=== PATIENT | female | born 1955 | race Hispanic/Latino ===

== ENCOUNTER 2019-02-07 01:57 | Emergency (ER) | payer SELFPAY ==
[2019-02-07] MEDS ORDERED: IBUPROFEN 400 MG TAB ONE (02:47)
[2019-02-07] MEDS ORDERED: MORPHINE 4 MG/ML SYR ONE (02:57)
--- NOTE | 2019-02-07 03:19 | EDPHYS ---
Physician Documentation [facility] Name: Lynda Alonso Age: 63 yrs Sex: Female : 1955 Arrival Date: 02/07/2019 Time: 02:04 Bed 14 Private MD: ED Physician Wilfred Wills HPI: 02/07 02:05 This 63 yrs old Female presents to ER via EMS with complaints of Ankle Injury. jmm 02:05 The patient presents with an injury, pain. Onset: The symptoms/episode began/occurred jmm acutely, 2.5 hour(s) ago. Context: The problem was sustained at home. Associated signs and symptoms: Pertinent positives: swelling, Pertinent negatives:. Modifying factors: The symptoms are alleviated by the symptoms are aggravated by weight bearing, movement. This is a 63 year old female with no known chronic medical conditions that presents to the ED with complaints of right ankle pain which began 2.5 hours ago. Patient states she rolled her ankle and noticed increased swelling. Patient states she decided not to bear weight and called EMS. Patient admits to ETOH intake. Denies any other known injury, . Historical: - Allergies: 01:58 No Known Allergies; jb4 - Home Meds: 01:58 None [Active]; jb4 - PMHx: 01:58 None; jb4 - PSHx: 01:58 None; jb4 - Immunization history:: Adult Immunizations not up to date. - Social history:: Smoking status: Patient uses tobacco products, smokes .3 packs per day, Patient uses alcohol. - Ebola Screening: : No symptoms or risks identified at this time. ROS: 02:05 Constitutional: Negative for fever, chills, and weight loss, Cardiovascular: Negative jmm for chest pain, palpitations, and edema, Respiratory: Negative for shortness of breath, cough, wheezing, and pleuritic chest pain. 02:05 MS/extremity: Positive for injury or acute deformity, pain, swelling. 02:05 All other systems are negative. Exam: 02:05 Constitutional: This is a well developed, well nourished patient who is awake, alert, jmm and in no acute distress. Head/Face: atraumatic. Eyes: EOMI, no conjunctival erythema appreciated ENT: Moist Mucus Membranes Neck: Trachea midline, Supple Chest/axilla: Normal chest wall appearance and motion. Cardiovascular: Regular rate and rhythm. No edema appreciated Respiratory: Normal respirations, no respiratory distress appreciated Abdomen/GI: Non distended, soft Back: Normal ROM Skin: General appearance color normal 02:05 Musculoskeletal/extremity: swelling noted to the right ankle, full dorsalis pulse is appreciated, compartments are soft, NVI. 02:05 Skin: Appearance: Color: normal in color. 02:05 Neuro: Orientation: is normal, Mentation: is normal, Memory: is normal. 02:05 Psych: Behavior/mood is pleasant, cooperative. Vital Signs: 01:58 BP 121 / 81; Pulse 84; Resp 16; Temp 97.8(O); Pulse Ox 97% on R/A; Weight 58.97 kg (R); jb4 Height 4 ft. 11 in. (149.86 cm) (R); Pain 8/10; 03:05 BP 113 / 75; Pulse 86; Resp 16; Pulse Ox 96% on R/A; jb4 03:45 BP 106 / 65; Pulse 75; Resp 16; Pulse Ox 99% on R/A; jb4 01:58 Body Mass Index 26.26 (58.97 kg, 149.86 cm) jb4 Procedures: 03:21 Splinting: Splint applied to right leg using post/stirrup. applied by myself. tech. neisha post reduction film - reveals improved alignment, Examined by me, post splint application: neurovascular intact, 2+ distal pulses palpable, brisk capillary refill noted, Patient tolerated well. MDM: 02:07 Patient medically screened. [facility] 03:16 Data reviewed: vital signs, nurses notes. Counseling: I had a detailed discussion with neisha the patient and/or guardian regarding: the historical points, exam findings, and any diagnostic results supporting the discharge/admit diagnosis, radiology results, the need for outpatient follow up. ED course: Dr. Wills discussed the patient with Dr. Watson whom advised to follow up with him in clinic for reevaluation. Patient and family given compartment syndrome return precautions. Family understood and agrees with the plan of care. . 02/07 02:04 Order name: Ankle Right 3 View XRAY 02/07 02:04 Order name: Foot Right 3 View XRAY 02/07 02:19 Order name: Splint: posterior with stirrup; Complete Time: 03:02 [facility] 02/07 02:57 Order name: Ankle Right 3 View XRAY [facility] 02/07 02:19 Order name: Crutches; Complete Time: 03:41 [facility] Administered Medications: 03:02 Not Given (Other Intervention Used): Ibuprofen 400 mg PO once jb4 03:10 Drug: morphine 4 mg {Note: Rass score 0.} Route: IM; Site: left deltoid; jb4 03:40 Follow up: Response: No adverse reaction; Pain is decreased; RASS: Alert and Calm (0) jb Disposition: 06:56 Co-signature as Attending Physician, Wilfred Wills MD I agree with the assessment and ghanshyam plan of care. Disposition: 02/07/19 03:19 Discharged to Home. Impression: Distal Tibial Fracture, Distal Fibular Fracture. - Condition is Stable. - Discharge Instructions: Ankle Fracture. - Prescriptions for Tylenol- Codeine #3 300-30 mg Oral Tablet - take 1 tablet by ORAL route every 6 hours As needed; 20 tablet. - Medication Reconciliation Form, Thank You Letter, Antibiotic Education, Prescription Opioid Use form. - Follow up: Zan Watson MD; When: 2 - 3 days; Reason: Recheck today's complaints, Continuance of care, Re-evaluation by your physician. Signatures: Dispatcher [employer] Wilfred Mcnair MD MD cha Mickail, Joel, PA PA [facility] Garo Lebron RN RN jb4 Corrections: (The following items were deleted from the chart) 04:00 03:19 02/07/2019 03:19 Discharged to Home. Impression: Distal Tibial Fracture; Distal jb4 Fibular Fracture. Condition is Stable. Forms are Medication Reconciliation Form, Thank You Letter, Antibiotic Education, Prescription Opioid Use. Follow up: Zan Watson; When: 2 - 3 days; Reason: Recheck today's complaints, Continuance of care, Re-evaluation by your physician. [facility]
--- NOTE | 2019-02-07 03:19 | ER ---
Nurse's Notes [facility] Name: Lynda Alonso Age: 63 yrs Sex: Female : 1955 Arrival Date: 02/07/2019 Time: 02:04 Bed 14 Private MD: Diagnosis: Distal Tibial Fracture;Distal Fibular Fracture Presentation: 02/07 01:58 Presenting complaint: EMS states: PT rolled her ankle about 2-3 hours ago. Reports that jb4 it started to hurt about 15 minutes prior to calling us. Reports pain at an 8/10. 01:58 Transition of care: patient was not received from another setting of care. Onset of jb4 symptoms was February 06, 2019. Risk Assessment: Do you want to hurt yourself or someone else? Patient reports no desire to harm self or others. Initial Sepsis Screen: Does the patient meet any 2 criteria? No. Patient's initial sepsis screen is negative. Does the patient have a suspected source of infection? No. Patient's initial sepsis screen is negative. Care prior to arrival: Splint applied. 01:58 Method Of Arrival: EMS: [facility] jb4 01:58 Acuity: MEÑO 4 jb4 Historical: - Allergies: 01:58 No Known Allergies; jb4 - Home Meds: 01:58 None [Active]; jb4 - PMHx: 01:58 None; jb4 - PSHx: 01:58 None; jb4 - Immunization history:: Adult Immunizations not up to date. - Social history:: Smoking status: Patient uses tobacco products, smokes .3 packs per day, Patient uses alcohol. - Ebola Screening: : No symptoms or risks identified at this time. Screenin:58 Abuse screen: Denies threats or abuse. Nutritional screening: No deficits noted. jb4 Tuberculosis screening: No symptoms or risk factors identified. Fall Risk Fall in past 12 months (25 points). Total Salvador Fall Scale indicates Low Risk Score (25-44 pts). Fall prevention measures have been instituted. Side Rails Up X 2 Placed close to Nursing Station Frequent Obs/Assesments occuring Family Present and informed to notify staff if they need to leave bedside As available Patient and Family Educated on Fall Prevention Program and strategies. Assessment: 01:58 General: Appears in no apparent distress. uncomfortable, Behavior is calm, cooperative, jb4 appropriate for age, Smells of alcohol. Pain: Complains of pain in right ankle Pain does not radiate. Pain currently is 8 out of 10 on a pain scale. Quality of pain is described as throbbing. Neuro: Level of Consciousness is awake, alert, obeys commands, Oriented to person, place, time, situation. Cardiovascular: Patient's skin is warm and dry. Pulses are 3+ in right dorsalis pedis artery. Respiratory: Airway is patent Respiratory effort is even, unlabored, Respiratory pattern is regular, symmetrical. GI: No deficits noted. No signs and/or symptoms were reported involving the gastrointestinal system. : No deficits noted. No signs and/or symptoms were reported regarding the genitourinary system. EENT: No deficits noted. No signs and/or symptoms were reported regarding the EENT system. Derm: Skin is intact, Skin is pink, warm \T\ dry. Musculoskeletal: Circulation, motion, and sensation intact. 03:14 Reassessment: Patient appears in no apparent distress at this time. Patient and/or jb4 family updated on plan of care and expected duration. Pain level reassessed. Patient is alert, oriented x 3, equal unlabored respirations, skin warm/dry/pink. PT has good capillary refill in the right toes, <3 seconds. Splint checked by ER provider. 03:41 Reassessment: Patient appears in no apparent distress at this time. Patient and/or jb4 family updated on plan of care and expected duration. Pain level reassessed. Patient is alert, oriented x 3, equal unlabored respirations, skin warm/dry/pink. PT reports feeling dizzy and is unable to do crutch training at this time. D/c pending patients improvement of dizziness and ability to get in a wheelchair. 03:57 Reassessment: Patient appears in no apparent distress at this time. Patient and/or jb4 family updated on plan of care and expected duration. Pain level reassessed. Patient is alert, oriented x 3, equal unlabored respirations, skin warm/dry/pink. PT feeling better. reports wanting to go home . Pt and family verbalized understanding of d/c and follow up instructions. Assisted to vehicle via wheelchair. Vital Signs: 01:58 BP 121 / 81; Pulse 84; Resp 16; Temp 97.8(O); Pulse Ox 97% on R/A; Weight 58.97 kg (R); jb4 Height 4 ft. 11 in. (149.86 cm) (R); Pain 8/10; 03:05 BP 113 / 75; Pulse 86; Resp 16; Pulse Ox 96% on R/A; jb4 03:45 BP 106 / 65; Pulse 75; Resp 16; Pulse Ox 99% on R/A; jb4 01:58 Body Mass Index 26.26 (58.97 kg, 149.86 cm) jb4 ED Course: 01:58 Arm band placed on left wrist. jb4 01:58 Patient has correct armband on for positive identification. Bed in low position. Call jb4 light in reach. Side rails up X 1. Pulse ox on. NIBP on. 02:04 Patient arrived in ED. ds1 02:06 Steven Moctezuma PA is PHCP. jmm 02:06 Wilfred Wills MD is Attending Physician. jmm 02:08 Garo Lebron, SOPHIA is Primary Nurse. jb4 02:09 Triage completed. jb4 02:51 Ankle Right 3 View XRAY In Process Unspecified. EDMS 02:51 Foot Right 3 View XRAY In Process Unspecified. EDMS 03:05 Orthoglass splint: stirrup splint applied on right leg. jb4 03:13 Ankle Right 3 View XRAY In Process Unspecified. EDMS 03:18 Zan Castro MD is Referral Physician. [facility] 03:59 No provider procedures requiring assistance completed. Patient did not have IV access jb4 during this emergency room visit. Administered Medications: 03:02 Not Given (Other Intervention Used): Ibuprofen 400 mg PO once jb4 03:10 Drug: morphine 4 mg {Note: Rass score 0.} Route: IM; Site: left deltoid; jb4 03:40 Follow up: Response: No adverse reaction; Pain is decreased; RASS: Alert and Calm (0) jb Outcome: 03:19 Discharge ordered by . jmm 03:59 Discharged to home via wheelchair, with family. jb4 03:59 Condition: stable 03:59 Discharge instructions given to patient, family, Instructed on discharge instructions, follow up and referral plans. medication usage, crutch walking, Demonstrated understanding of instructions, follow-up care, medications, crutch walking, Prescriptions given X 1. 04:00 Patient left the ED. jb4 Signatures: Dispatcher [employer] EDMS Steven Moctezuma PA PA jmm Sanford, Demi ds1 Garo Lebron RN RN jb4 Corrections: (The following items were deleted from the chart) 03:58 03:14 Reassessment: Patient appears in no apparent distress at this time. Patient jb4 and/or family updated on plan of care and expected duration. Pain level reassessed. Patient is alert, oriented x 3, equal unlabored respirations, skin warm/dry/pink. PT has good capillary refill in the right toes, <3 seconds. jb4
[2019-02-07 04:07] VITALS: TEMP 97.8
[2019-02-07 04:09] VITALS: BP 106/65; O2SAT 99
--- NOTE | 2019-02-07 08:22 | RAD REPORT ---
EXAM DESCRIPTION: RAD - Foot Right 3 View - 02/07/2019 2:50 am CLINICAL HISTORY: Fall, roll and twisting injury COMPARISON: None. FINDINGS: Severe degenerative changes are present at the first MTP joint. There are large spurs with joint space narrowing. No erosive or destructive process. There is slight lateral subluxation of the first proximal phalanx. No fracture of the phalanges, metatarsals or tarsal bones seen. Soft tissue swelling is present. Ankle joint findings are separately detailed. IMPRESSION: Severe degenerative change first MTP joint. No foot fracture findings. Ankle findings are separately detailed.
--- NOTE | 2019-02-07 08:23 | RAD REPORT ---
EXAM DESCRIPTION: RAD - Ankle Right 3 View - 02/07/2019 2:50 am CLINICAL HISTORY: Ankle pain, oral and twisting injury COMPARISON: None. FINDINGS: Oblique fracture is present through the distal fibula at the tibiotalar joint line. Transv erse fracture is present through the medial malleolus. There is lateral displacement of the dome of t he talus approximately 15 mm. Medial malleolus fracture fragment remains attached to the talus. There is lateral displacement and angulation of the distal fibula fracture fragment. A posterior malleolus fracture is not confirmed. Soft tissue swelling is present around the ankle. No foreign body. IMPRESSION: Bimalleolar ankle fracture with lateral displacement of the dome of the talus approximat krishna 15 mm. No posterior malleolus fracture fragment confirmed.
--- NOTE | 2019-02-07 08:25 | RAD REPORT ---
EXAM DESCRIPTION: RAD - Ankle Right 3 View - 02/07/2019 3:12 am CLINICAL HISTORY: Fracture dislocation reduction maneuvers, ankle fracture COMPARISON: Right ankle same date FINDINGS: Cast material is now in place. Talus has been reduced to near anatomic positioning. Latera l view shows that there may be very small 2 millimeter fracture from the posterior malleolus. This is probably not clinically significant. IMPRESSION: Right ankle fracture dislocation has been reduced to near anatomic position.
== END 2019-02-07 04:00 | disposition home or self-care (01) ==
LOC: ER 01:57
PROC: 0PSHXZZ Reposition Right Radius, External Approach (ICD-10-PCS; principal; 2019-02-07)
PROC: 0PSKXZZ Reposition Right Ulna, External Approach (ICD-10-PCS; 2019-02-07)
DX: S82.841A Displaced bimalleolar fracture of right lower leg, initial encounter for closed fracture (principal); S82.402A Unspecified fracture of shaft of left fibula, initial encounter for closed fracture
CPT/HCPCS: 96372; 99284

== ENCOUNTER 2022-09-16 15:41 | Emergency (ER) | payer OTHER ==
--- OUTSIDE RECORDS SUMMARY | 2022-09-16 15:44 | XMS REPORT | Continuity of Care Document ---
:1954 Author Organization [facility] t Address [address] [facility] [address] [place] [id number] Care Team Providers Name Role Phone Mansi Thomas Primary Care Physician JOSIAS JOHNSON Attending Clinician Unavailable JOSIAS JOHNSON Attending Clinician Unavailable LUZ MARINA FLEMING Attending Clinician Unavailable LUZ MARINA FLEMING Attending Clinician Unavailable Doctor Unassigned, [place] Attending Clinician Unavailable [facility] Attending Clinician Unavailable YUNG ALBARRAN Attending Clinician Unavailable Nurse, Adc Pob Immunization Attending Clinician Unavailable Yung Albarran DO Attending Clinician KATELYN DOVER Attending Clinician Unavailable Payers Payer Name Policy Type Policy Number Effective Date Expiration Date S [facility] [place] [place] PART A [id number] 2021 \T\ B 00:00:00 Problems Condition Condition Condition Status Onset Resolution Last Treating Co mments Source Name Details Category Date Date Treatment Clinician Date Closed Closed Disease Active 2018-03 Univers right right 1-14 ity of ankle ankle 00:00: [place] fracture, fracture, 00 Medi bob initial initial Branch encounter encounter Allergies, Adverse Reactions, Alerts Allergy Allergy Status Severity Reaction(s) Onset Inactive Treating Comm ents Source Name Type Date Date Clinician NO KNOWN Drug Active Univers ALLERGIE Class ity of S [facility] Social History Social Habit Start Date Stop Date Quantity Comments Source History of Cigarette Smoker Universi ty of tobacco use [facility] Alcohol intake 2022-09-03 2022-09-03 Ex-drinker University 00:00:00 00:00:00 (finding) [facility] Tobacco use and 2022-09-03 2022-09-03 Smokeless tobacco Un iversity of exposure 00:00:00 00:00:00 non-user [facility] Sex [birth year] Universit y of 00:00:00 00:00:00 [facility] Smoking Status Start Date Stop Date Source Ex-smoker 2022-09-03 00:00:00 2022-09-03 [facility] Smokes tobacco daily 2019-02-07 00:00:00 [facility] Medications Ordered Filled Start Stop Current Ordering Indication Dosage Frequency Signature Comments Components Source Medication Medication Date Date Medication? Clinician (SIG) Name Name ibuprofen Yes 800mg Take 1 Unive rs (MOTRIN) 6-09 tablet by ity of 800 mg 09:09: mouth [place] tablet 53 every 6 Medical (six) Branch hours as needed. ibuprofen 0 Yes 800mg Take 1 Unive rs (MOTRIN) 6-09 tablet by ity of 800 mg 09:09: mouth [place] tablet 53 every 6 Medical (six) Branch hours as needed. ibuprofen 2022-0 Yes 800mg Take 1 Unive rs (MOTRIN) 6-09 tablet by ity of 800 mg 09:09: mouth [place] tablet 53 every 6 Medical (six) Branch hours as needed. ibuprofen 0 Yes 800mg Take 1 Unive rs (MOTRIN) 6-09 tablet by ity of 800 mg 09:09: mouth [place] tablet 53 every 6 Medical (six) Branch hours as needed. traMADoL 50 Yes TAKE 1 Univ ers mg tablet 5-28 TABLET BY ity o f 00:00: MOUTH [place] 00 THREE Medical TIMES A Branch DAY NEEDED FOR PAIN traMADoL 50 2022-0 Yes TAKE 1 Univ ers mg tablet 5-28 TABLET BY ity o f 00:00: MOUTH [place] 00 THREE Medical TIMES A Branch DAY NEEDED FOR PAIN traMADoL 50 2022-0 Yes TAKE 1 Univ ers mg tablet 5-28 TABLET BY ity o f 00:00: MOUTH [place] 00 THREE Medical TIMES A Branch DAY NEEDED FOR PAIN traMADoL 50 Yes TAKE 1 Univ ers mg tablet 5-28 TABLET BY ity o f 00:00: MOUTH [place] 00 THREE Medical TIMES A Branch DAY NEEDED FOR PAIN meclizine 2015-03 Yes 25mg Take 1 Univer s (MOTION 1-16 tablet by ity of SICKNESS 00:00: mouth [place] RELIEF II) 00 every 6 Medica l 25 mg (six) Branch tablet hours. meclizine 2015-03 Yes 25mg Take 1 Univer s (MOTION 1-16 tablet by ity of SICKNESS 00:00: mouth [place] RELIEF II) 00 every 6 Medica l 25 mg (six) Branch tablet hours. meclizine 2015-03 Yes 25mg Take 1 Univer s (MOTION 1-16 tablet by ity of SICKNESS 00:00: mouth [place] RELIEF II) 00 every 6 Medica l 25 mg (six) Branch tablet hours. meclizine 2015-03 Yes 25mg Take 1 Univer s (MOTION 1-16 tablet by ity of SICKNESS 00:00: mouth [place] RELIEF II) 00 every 6 Medica l 25 mg (six) Branch tablet hours. meclizine 2015-03 Yes 25mg Take 1 Univer s (MOTION 1-16 tablet by ity of SICKNESS 00:00: mouth [place] RELIEF II) 00 every 6 Medica l 25 mg (six) Branch tablet hours. meclizine 2015-03 Yes 25mg Take 1 Univer s (MOTION 1-16 tablet by ity of SICKNESS 00:00: mouth [place] RELIEF II) 00 every 6 Medica l 25 mg (six) Branch tablet hours. ibuprofen Yes 800mg Take 800 Uni vers (MOTRIN) 4-18 mg by ity of 800 mg 16:34: mouth [place] tablet 16 every 6 Medical (six) Branch hours as needed. ibuprofen Yes 800mg Take 800 Uni vers (MOTRIN) 4-18 mg by ity of 800 mg 16:34: mouth [place] tablet 16 every 6 Medical (six) Branch hours as needed. acetaminoph Yes 1{tbl} Take 1 Tab Univers en-codeine 4-16 by mouth ity o f (TYLENOL-CO 00:00: every 6 [place] as DEINE #3) 00 (six) Medical 300-30 mg hours as Branch tablet needed for Pain (scale 4-6) (for cough). acetaminoph Yes 1{tbl} Take 1 Tab Univers en-codeine 4-16 by mouth ity o f (TYLENOL-CO 00:00: every 6 [place] as DEINE #3) 00 (six) Medical 300-30 mg hours as Branch tablet needed for Pain (scale 4-6) (for cough). acetaminoph Yes 1{tbl} Take 1 Tab Univers en-codeine 4-16 by mouth ity o f (TYLENOL-CO 00:00: every 6 [place] as DEINE #3) 00 (six) Medical 300-30 mg hours as Branch tablet needed for Pain (scale 4-6) (for cough). acetaminoph Yes 1{tbl} Take 1 Tab Univers en-codeine 4-16 by mouth ity o f (TYLENOL-CO 00:00: every 6 [place] as DEINE #3) 00 (six) Medical 300-30 mg hours as Branch tablet needed for Pain (scale 4-6) (for cough). acetaminoph Yes 1{tbl} Take 1 Tab Univers en-codeine 4-16 by mouth ity o f (TYLENOL-CO 00:00: every 6 [place] as DEINE #3) 00 (six) Medical 300-30 mg hours as Branch tablet needed for Pain (scale 4-6) (for cough). acetaminoph Yes 1{tbl} Take 1 Tab Univers en-codeine 4-16 by mouth ity o f (TYLENOL-CO 00:00: every 6 [place] as DEINE #3) 00 (six) Medical 300-30 mg hours as Branch tablet needed for Pain (scale 4-6) (for cough). Immunizations Ordered Filled Immunization Date Status Comments [facility] Immunization Name Name SARS-COV-2 COVID-19 2021-04-14 Completed Unive rsity of PFIZER VACCINE 00:00:00 [facility] SARS-COV-2 COVID-19 2021-04-14 Completed Unive rsity of PFIZER VACCINE 00:00:00 [facility] SARS-COV-2 COVID-19 2021-04-14 Completed Unive rsity of PFIZER VACCINE 00:00:00 [facility] SARS-COV-2 COVID-19 2021-04-14 Completed Unive rsity of PFIZER VACCINE 00:00:00 [facility] SARS-COV-2 COVID-19 2021-04-14 Completed Unive rsity of PFIZER VACCINE 00:00:00 [facility] SARS-COV-2 COVID-19 2021-04-14 Completed Unive rsity of PFIZER VACCINE 00:00:00 [facility] SARS-COV-2 COVID-19 2020-06-14 Completed Unive rsity of PFIZER VACCINE 00:00:00 [facility] SARS-COV-2 COVID-19 2020-06-14 Completed Unive rsity of PFIZER VACCINE 00:00:00 [facility] SARS-COV-2 COVID-19 2020-06-14 Completed Unive rsity of PFIZER VACCINE 00:00:00 [facility] SARS-COV-2 COVID-19 2020-06-14 Completed Unive rsity of PFIZER VACCINE 00:00:00 [facility] SARS-COV-2 COVID-19 2020-06-14 Completed Unive rsity of PFIZER VACCINE 00:00:00 [facility] SARS-COV-2 COVID-19 2020-06-14 Completed Unive rsity of PFIZER VACCINE 00:00:00 [facility] SARS-COV-2 COVID-19 2020-05-24 Completed Unive rsity of PFIZER VACCINE 00:00:00 [facility] SARS-COV-2 COVID-19 2020-05-24 Completed Unive rsity of PFIZER VACCINE 00:00:00 [facility] SARS-COV-2 COVID-19 2020-05-24 Completed Unive rsity of PFIZER VACCINE 00:00:00 [facility] SARS-COV-2 COVID-19 2020-05-24 Completed Unive rsity of PFIZER VACCINE 00:00:00 [facility] SARS-COV-2 COVID-19 2020-05-24 Completed Unive rsity of PFIZER VACCINE 00:00:00 [facility] SARS-COV-2 COVID-19 2020-05-24 Completed Unive rsity of PFIZER VACCINE 00:00:00 [facility] Vital Signs Vital Name Observation Time Observation Value Comments Source Systolic blood 2022-09-03 14:08:00 154 mm[Hg] Univer sity of [facility] Diastolic blood 2022-09-03 14:08:00 83 mm[Hg] Unive rsity of [facility] Heart rate 2022-09-03 14:08:00 83 /min [facility] Body height 2022-09-03 14:07:00 149.9 cm [facility] Body weight 2022-09-03 14:07:00 69.582 kg [facility] BMI 2022-09-03 14:07:00 30.98 kg/m2 [facility] Procedures Procedure Date / Time Performed Performing Clinician Sourc e EXTERNAL PROVIDER 2022-09-15 05:01:00 Doctor Unassigned, No Univ ersity of [place] RECORDS Name [facility] POCT URINALYSIS W/O 2022-09-03 16:42:00 Josias Johnson [facility] SPECIFIC GRAVITY [facility] CBC WITH DIFF 2022-09-03 15:20:00 Josias Johnson [place] o f [facility] GALV ONLY - VAGINAL 2022-09-03 15:02:00 Josias Johnson [facility] PATHOGENS BY NUCLEIC Medical [facility] ACID TESTING REFERRAL- 2022-08-26 05:01:00 [facility]assigned, [facility]RESPONSE Name [facility] SARS-COV-2 COVID-19 2021-04-14 15:02:15 [facility]IM Name [facility] (PFIZER) Encounters Start End Encounter Admission Attending Care Care Encounter Source Date/Time Date/Time Type Type Clinicians Facility Department ID 2022-10-08 2022-10-08 Outpatient R JOSIAS JOHNSON [facility] 1 [id number] Univers 00:00:00 00:00:00 JOSIAS JOHNSON nicole [facility] 2022-09-27 2022-09-27 Outpatient R LUZ MARINA FLEMING [facility] U TMB [id number] Univers 10:30:00 10:30:00 LUZ MARINA FLEMING [facility] 2022-09-15 2022-09-15 Orders Doctor LOFTON [id number] Univers 00:00:00 00:00:00 Only Unassigned, [place] [id number] ity of [place] [facility] [id number] [place] [phone] [place] [address] Branch 2022-09-03 2022-09-03 Outpatient R JOSIAS JOHNSON [facility] 1 [id number] Univers 09:20:00 16:20:58 [facility]22-09-03 2022-09-03 Office YANELI Johnson [id number] Univers 09:20:00 16:20:58 Visit Josias [facility] [id number] i ty of [id number] [place] [id number] [facility] 095 Branch 2022-09-03 2022-09-03 [employer] [facility] UNIVERSIT [id number] Univers 10:30:00 10:45:00 Visit Josias Johnson [id number] ity of [facility] [id number] [place] [id number] [facility] [address] [place] 2022-08-26 2022-08-26 Outpatient [facility] [id number] [place] 11:33:42 11:33:42 [address] [address] [place] 2022-08-26 2022-08-26 Orders Doctor KIRSTY [id number] Univers 00:00:00 00:00:00 Only Unassigned, [place] [id number] ity of [place] [facility] [id number] [place] [id number] [address] 2021-04-14 2021-04-14 Outpatient Althea ALBARRAN [facility] [id number] Univers 08:30:00 08:31:02 YUNG lemus [facility] 2021-04-14 2021-04-14 Imm/Inj Nurse, Adc Pob Immunization [facility] [id number] Univers 08:30:00 08:31:02 Visit Yung Albarran [id number] .10 ity [facility] [id number] [id number] Wy dical NAL [address] [facility] 2020-06-14 2020-06-14 Outpatient Althea DOVER [facility] [id number] Univers 09:05:00 09:05:00 KATELYN [facility] 2020-05-24 2020-05-24 Outpatient Althea DOVER, [facility] [id number] Univers 09:50:00 09:50:00 KATELYN [facility] Results Test Description Test Time Test Comments Results Result Comments Source POCT URINALYSIS W/O SPECIFIC GRAVITY 2022-09-03 16:42:00 Test Item Value Reference Range Interpretation Comme nts POCT PH U (test code = 3254) 7.0 mg/dl 5-8 POCT U LEUK EST (test code = 3263) Negative Negative - Negative POCT U NIT (test code = 3262) Negative Negative - Negative POCT U PROT (test code = 3259) Negative Negative - Negative POCT U GLU (test code = 3256) Negative Negative - Negative POCT U KETONE (test code = 3258) Negative Negative - Negative POCT U BLD (test code = 3257) Negative Negative - Negative [facility]/O SPECIFIC [id number] 16:42:00 Test Item Value Reference Range Interpretation Comments POCT PH U (test code = 3254) 7.0 mg/dl 5-8 POCT U LEUK EST (test code = Negative Negative - Negative 3263) POCT U NIT (test code = 3262) Negative Negative - Negative POCT U PROT (test code = 3259) Negative Negative - Negative POCT U GLU (test code = 3256) Negative Negative - Negative POCT U KETONE (test code = Negative Negative - Negative 3258) POCT U BLD (test code = 3257) Negative Negative - Negative [facility] [id number] 16:10:48 Test Item Value Reference Range Interpretation Comments WBC (test code = 14.90 See_Comment H [Automated 8531-2) message] The system which generated this result transmit rosalva reference range : 4.30 - 11.10 10*3/?L. The reference range was not used to interpret this result as normal/abnormal . RBC (test code = 4.64 See_Comment [Automated 478-7) message] The system which generated this result transmit rosalva reference range : 3.93 - 5.25 10*6/?L. The reference range was not used to interpret this result as normal/abnormal . HGB (test code = 14.2 g/dL 11.6-15.0 718-7) HCT (test code = 42.6 % 35.7-45.2 4544-3) MCV (test code = 91.8 fL 80.6-95.5 787-2) MCH (test code = 30.6 pg 25.9-32.8 785-6) MCHC (test code = 33.3 g/dL 31.6-35.1 786-4) RDW-SD (test code = 44.8 fL 39.0-49.9 65528-2) RDW-CV (test code = 13.3 % 12.0-15.5 788-0) PLT (test code = 468 See_Comment H [Automated 777-3) message] The system which generated this result transmit rosalva reference range : 166 - 358 10*3/ ?L. The reference range was not u sed to interpret th is result as normal/abnormal . MPV (test code = 9.8 fL 9.5-12.9 02643-3) NRBC/100 WBC (test 0.0 See_Comment [Automat ed code = [id number]) message] The system which generated this result transmit rosalva reference range : 0.0 - 10.0 /100 WBCs. The reference range was not used to interpret this result as normal/abnormal . NRBC x10^3 (test code See_Comment [Auto mated = [id number]) message] The system which generated this result transmit rosalva reference range : 10*3/?L. The reference range was not used to interpret this result as normal/abnormal . GRAN MAT (NEUT) % 78.2 % (test code = 770-8) IMM GRAN % (test code 0.30 % = 0901483112) LYMPH % (test code = 14.5 % 736-9) MONO % (test code = 6.2 % 5905-5) EOS % (test code = 0.3 % 713-8) BASO % (test code = 0.5 % 706-2) GRAN MAT x10^3(ANC) 11.67 10*3/uL 1.88-7.09 H (test code = 0397407722) IMM GRAN x10^3 (test 0.04 10*3/uL 0.00-0.06 code = 9580508063) LYMPH x10^3 (test code 2.16 10*3/uL 1.32-3.29 = 731-0) MONO x10^3 (test code 0.92 10*3/uL 0.33-0.92 = 742-7) EOS x10^3 (test code = 0.04 10*3/uL 0.03-0.39 711-2) BASO x10^3 (test code 0.07 10*3/uL 0.01-0.07 = 704-7) Lab Interpretation Abnormal (test code = 75371-6) [facility]
[2022-09-16] MEDS ORDERED: KETOROLAC 30 MG/ML INJ ONE (17:11)
[2022-09-16 17:12] LABS: Absolute Lymphocytes (CBC) 2.8 K/uL (0.7-4.9); Hematocrit 41.2 % (36.0-45.0); Lymphocytes % 15.9 % (15.3-44.8); MPV 8.5 fL (7.6-11.3); RBC Red Blood Cell Count 4.48 M/uL (3.86-4.86)
[2022-09-16 17:35] LABS: Albumin 3.6 g/dL (3.4-5.0); Bilirubin Total 0.3 mg/dL (0.2-1.0); Protein, Total 8.1 g/dL (6.4-8.2)
[2022-09-16 17:42] LABS: Specific Gravity 1.016 (1.005-1.030); Urine Bacteria None Seen /HPF (<20); Urine Bilirubin NEGATIVE (Negative); Urine Blood Negative (Negative); Urine Clarity Clear (Clear); Urine Color Light-Yellow (Yellow); Urine Glucose NEGATIVE (Negative); Urine Mucus Slight /HPF (None Seen); Urine Protein NEGATIVE (Negative); Urine RBC <5 /HPF (None Seen); Urine Urobilinogen Normal (Normal)
--- NOTE | 2022-09-16 18:29 | RAD REPORT ---
EXAM DESCRIPTION: CTAbdomen Pelvis W Contrast - 09/16/2022 6:20 pm CLINICAL HISTORY: Abdominal pain. ABD PAIN COMPARISON: Transvaginal Study Probe dated 08/21/2022 TECHNIQUE: Biphasic CT imaging of the abdomen and pelvis was performed with 100 ml non-ionic IV cont rast. All CT scans are performed using dose optimization technique as appropriate and may include automated exposure control or mA/KV adjustment according to patient size. FINDINGS: The lung bases are clear. The liver, spleen, pancreas, adrenal glands and kidneys are within normal limits. No bowel obstruction, free air, free fluid or abscess. The appendix is normal. There is an abnormal soft tissue lesion seen in the region of the left pelvis measuring 3.1 x 2.6 cm. This appears to be adjacent or contiguous with enlarged left adnexal/ovarian mass measuring up to 5 cm. This is directly adjacent to sigmoid colon loops anteriorly which appears mildly thickened several diverticula presen t. No suspicious bony findings. IMPRESSION: There appears to be a soft tissue mass lesion in the left hemipelvis fat adjacent to the sigmoid colon as detailed. This measures approximately 5 cm with a component more superiorly measuri ng 3 x 2 cm. This is worrisome for malignancy. Suggest direct visualization and tissue sampling.
--- NOTE | 2022-09-16 19:48 | EDPHYS ---
Physician Documentation [facility] Name: Lynda Alonso Age: 67 yrs Sex: Female : 11/16/1954 Arrival Date: 09/16/2022 Time: 15:41 Bed 5 Private MD: ED Physician Vitaliy Padron HPI: 09/16 21:39 This 67 yrs old Female presents to ER via Ambulatory with complaints of rt Abdominal Pain. 21:39 Patient presents to the ED with 1 month of left lower quadrant pain. It worsened today. rt Patient had an unremarkable ultrasound recently, was referred to [facility]. States symptoms have worsened today, denies nausea, vomiting, fever. Denies other acute complaints, symptoms are moderate severity, aching nature, nonradiating, no other aggravating or leading factors.. Historical: - Allergies: 16:06 No Known Allergies; cm10 - Home Meds: 16:06 None [Active]; cm10 - PMHx: 16:06 None; cm10 - Immunization history:: Adult Immunizations unknown. - Social history:: Smoking status: Patient reports the use of cigarette tobacco products, denies chronic smoking, but will smoke occasionally. - Family history:: not pertinent. ROS: 21:39 Constitutional: Negative for fever, chills, and weight loss, Cardiovascular: Negative rt for chest pain, palpitations, and edema, Respiratory: Negative for shortness of breath, cough, wheezing, and pleuritic chest pain, MS/Extremity: Negative for injury and deformity, Skin: Negative for injury, rash, and discoloration, Neuro: Negative for headache, weakness, numbness, tingling, and seizure, Psych: Negative for depression, anxiety, suicide ideation, homicidal ideation, and hallucinations. 21:39 Abdomen/GI: Positive for abdominal pain, Negative for nausea, vomiting, and diarrhea. Exam: 21:39 Constitutional: This is a well developed, well nourished patient who is awake, alert, rt and in no acute distress. Head/Face: Normocephalic, atraumatic. Chest/axilla: Normal chest wall appearance and motion. Nontender with no deformity. No lesions are appreciated. Cardiovascular: Regular rate and rhythm with a normal S1 and S2. No gallops, murmurs, or rubs. Normal PMI, no JVD. No pulse deficits. Respiratory: Lungs have equal breath sounds bilaterally, clear to auscultation and percussion. No rales, rhonchi or wheezes noted. No increased work of breathing, no retractions or nasal flaring. Skin: Warm, dry with normal turgor. Normal color with no rashes, no lesions, and no evidence of cellulitis. MS/ Extremity: Pulses equal, no cyanosis. Neurovascular intact. Full, normal range of motion. Neuro: Awake and alert, GCS 15, oriented to person, place, time, and situation. Cranial nerves II-XII grossly intact. Motor strength 5/5 in all extremities. Sensory grossly intact. Cerebellar exam normal. Normal gait. Psych: Awake, alert, with orientation to person, place and time. Behavior, mood, and affect are within normal limits. 21:39 Abdomen/GI: Tenderness to the left lower quadrant with no rebound, guarding, distention. Vital Signs: 16:00 BP 137 / 78; Pulse 80; Resp 16; Temp 98.5; Pulse Ox 99% on R/A; Weight 68.04 kg; Height cm10 4 ft. 11 in. ; Pain 9/10; 17:20 BP 131 / 88; Pulse 73; Resp 18; Pulse Ox 95% on R/A; ld1 18:34 BP 94 / 64; Pulse 69; Resp 18; Pulse Ox 98% on R/A; ph 18:43 BP 127 / 78; Pulse 75; Resp 18; Pulse Ox 96% on R/A; ld1 20:23 BP 147 / 76; Pulse 66; Resp 18; Temp 98(O); Pulse Ox 97% ; kl 16:00 Body Mass Index 30.30 (68.04 kg, 149.86 cm) cm10 16:00 Pain Scale: Adult cm10 MDM: 16:43 Patient medically screened. rt 21:39 Differential diagnosis: Diverticulitis, mass, ovarian cyst, bowel obstruction. Data rt reviewed: vital signs, nurses notes, lab test result(s), radiologic studies. Consideration of Admission/Observation Escalation of care including admission/observation considered. Patient with leukocytosis, possible diverticulitis. There is no abscess formation, other clinical indicators for sepsis. Pain is well controlled with 1 dose of Toradol in the ED. At this time, patient is appropriate for trial of outpatient management. I discussed at length the findings of a sigmoid colon mass, states that patient should follow-up as an outpatient for colonoscopy. Believe that treatment of diverticulitis is most appropriate at this juncture with following colonoscopy for further biopsy. Patient verbalized understanding is comfortable with this plan. Discuss strict return precautions for worsening symptoms with the patient.. I considered the following discharge prescriptions or medication management in the emergency department Medications were administered in the Emergency Department. See MAR. Independent interpretation of the following test(s) in the Emergency Department CT Scan: My interpretation is Colonic mass seen on interpretation of the CT scan images. Counseling: I had a detailed discussion with the patient and/or guardian regarding: the historical points, exam findings, and any diagnostic results supporting the discharge/admit diagnosis, lab results, radiology results, the need for outpatient follow up, to return to the emergency department if symptoms worsen or persist or if there are any questions or concerns that arise at home. 09/16 16:50 Order name: CBC with Diff; Complete Time: 17:57 rt 09/16 16:50 Order name: CMP; Complete Time: 17:57 rt 09/16 16:50 Order name: Lipase; Complete Time: 17:57 rt 09/16 16:50 Order name: UAM; Complete Time: 17:57 rt 09/16 16:50 Order name: CT Abd/Pelvis - IV Contrast Only; Complete Time: 18:33 rt Administered Medications: 17:05 Drug: Ketorolac IVP 15 mg Route: IVP; Site: right antecubital; ph Disposition Summary: 09/16/22 19:47 Discharge Ordered Location: Home rt Problem: new rt Symptoms: have improved rt Condition: Stable rt Diagnosis - Mass in sigmoid colon rt - Diverticulitis rt Followup: rt - With: Esvin Recio MD - When: 5 - 6 days - Reason: Discharge Instructions: - Discharge Summary Sheet rt - Diverticulitis rt - Colon Mass, Adult rt Forms: - Medication Reconciliation Form rt - Thank You Letter rt - Antibiotic Education rt - Prescription Opioid Use rt Prescriptions: - acetaminophen-codeine 300-30 mg Oral tablet - take 1 tablet by ORAL route every 6 hours; 18 tablet; Refills: 0, Product rt Selection Permitted - ondansetron 4 mg Oral Tablet,disintegrating - take 1 tablet by ORAL route every 6 hours; 18 tablet; Refills: 0, Product rt Selection Permitted - Augmentin 875-125 mg Oral Tablet - take 1 tablet by ORAL route every 12 hours for 10 days; 20 tablet; Refills: 0, rt Product Selection Permitted Signatures: Dispatcher [employer] Sammie Quarles, RN RN Vitaliy Padron MD MD rt Kayla Adame RN RN cm10
--- NOTE | 2022-09-16 19:48 | ER ---
Nurse's Notes [facility] Name: Lynda Alonso Age: 67 yrs Sex: Female : 11/16/1954 Arrival Date: 09/16/2022 Time: 15:41 Bed 5 Private MD: Diagnosis: Mass in sigmoid colon;Diverticulitis Presentation: 09/16 16:00 Chief complaint: Patient states: LLQ abdominal pain X 1 month. Denies nausea, vomiting cm10 or diarrhea. Pt's daughter states that patient has been seen at urgent care and in the ED for the same issue. Pt was seen at [facility] and was referred to gynecology. 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 Coronavirus screen: Vaccine status: Patient reports receiving the 2nd dose of the covid vaccine. Client denies travel out of the [place] in the last 14 days. At this time, the client does not indicate any symptoms associated with coronavirus-19. Ebola Screen: No symptoms or risks identified at this time. 16:00 Method Of Arrival: Ambulatory cm10 16:42 Acuity: MEÑO 3 ss 18:35 Initial Sepsis Screen: Does the patient meet any 2 criteria? No. Patient's initial ph sepsis screen is negative. Does the patient have a suspected source of infection? No. Patient's initial sepsis screen is negative. Risk Assessment: Do you want to hurt yourself or someone else? Patient reports no desire to harm self or others. Onset of symptoms was September 16, 2022. Triage Assessment: 16:07 General: Appears in no apparent distress. comfortable, Behavior is calm, cooperative. cm10 Historical: - Allergies: 16:06 No Known Allergies; cm10 - Home Meds: 16:06 None [Active]; cm10 - PMHx: 16:06 None; cm10 - Immunization history:: Adult Immunizations unknown. - Social history:: Smoking status: Patient reports the use of cigarette tobacco products, denies chronic smoking, but will smoke occasionally. - Family history:: not pertinent. Screenin:06 [facility] ED Fall Risk Assessment (Adult) History of falling in the last 3 months, ph including since admission No falls in past 3 months (0 pts) Confusion or Disorientation No (0 pts) Intoxicated or Sedated No (0 pts) Impaired Gait No (0 pts) Mobility Assist Device Used No (0 pt) Altered Elimination No (0 pt) Score/Fall Risk Level 0 - 2 = Low Risk Oriented to surroundings, Maintained a safe environment, Hourly rounding (assess needs \T\ fall precautionary measures) done. Abuse screen: Denies threats or abuse. Denies injuries from another. Nutritional screening: No deficits noted. Tuberculosis screening: No symptoms or risk factors identified. Assessment: 17:05 General: Appears in no apparent distress. comfortable, well groomed, Behavior is calm, ph cooperative, appropriate for age. Pain: Complains of pain in left lower quadrant. Neuro: Level of Consciousness is awake, alert, obeys commands, Oriented to person, place, time, situation. Cardiovascular: Capillary refill < 3 seconds in bilateral fingers Patient's skin is warm and dry. Respiratory: Airway is patent Respiratory effort is even, unlabored. GI: Abdomen is non-distended, Reports lower abdominal pain, Patient currently denies diarrhea, nausea, vomiting. Derm: Skin is pink, warm \T\ dry. 18:43 Reassessment: No changes from previously documented assessment. Patient and/or family ld1 updated on plan of care and expected duration. Pain level reassessed. Vital Signs: 16:00 BP 137 / 78; Pulse 80; Resp 16; Temp 98.5; Pulse Ox 99% on R/A; Weight 68.04 kg; Height cm10 4 ft. 11 in. ; Pain 9/10; 17:20 BP 131 / 88; Pulse 73; Resp 18; Pulse Ox 95% on R/A; ld1 18:34 BP 94 / 64; Pulse 69; Resp 18; Pulse Ox 98% on R/A; ph 18:43 BP 127 / 78; Pulse 75; Resp 18; Pulse Ox 96% on R/A; ld1 20:23 BP 147 / 76; Pulse 66; Resp 18; Temp 98(O); Pulse Ox 97% ; kl 16:00 Body Mass Index 30.30 (68.04 kg, 149.86 cm) cm10 16:00 Pain Scale: Adult cm10 ED Course: 15:43 Patient arrived in ED. rg4 15:48 Vitaliy Padron MD is Attending Physician. rt 16:06 Arm band placed on. ll1 16:42 Triage completed. ss 16:42 Patient placed in an exam room, on a stretcher. ll1 17:04 Barrientos, Sammie, RN is Primary Nurse. ph 17:06 Patient has correct armband on for positive identification. Bed in low position. Call ph light in reach. Side rails up X 1. Pulse ox on. NIBP on. 18:22 CT Abd/Pelvis - IV Contrast Only In Process Unspecified. EDMS 19:26 Primary Nurse role handed off by Sammie Barrientos, RN rv1 19:46 Esvin Recio MD is Referral Physician. rt 20:23 No provider procedures requiring assistance completed. IV discontinued, intact, kl bleeding controlled, No redness/swelling at site. Pressure dressing applied. Administered Medications: 17:05 Drug: Ketorolac IVP 15 mg Route: IVP; Site: right antecubital; ph Medication: 18:35 VIS not applicable for this client. ph Outcome: 19:47 Discharge ordered by . rt 20:23 Discharged to home ambulatory, with family. kl 20:23 Condition: stable 20:23 Discharge instructions given to patient, family, Instructed on discharge instructions, follow up and referral plans. medication usage, Demonstrated understanding of instructions, follow-up care, medications, Prescriptions given X 3. 20:24 Patient left the ED. kl Signatures: Dispatcher [employer] EDMI Muriel Johnson RN RN Flori Dhaliwal RN SOPHIA Sammie Barrientos, Barbie Aj RN, ph rg4 Aiden Johnson RN RN ll1 Lisa Kelly RN RN ld1 Vitaliy Padron MD MD rt Antonette Nichols rv1 Kayla Adame RN RN cm10 Corrections: (The following items were deleted from the chart) 16:42 16:06 Arm band placed on Patient placed in waiting room, cm10 ll1
[2022-09-16 21:01] VITALS: BP 147/76; TEMP 98; O2SAT 97
== END 2022-09-16 20:24 | disposition home or self-care (01) ==
LOC: ER 15:41
DX: K63.89 Other specified diseases of intestine (principal); K57.32 Diverticulitis of large intestine without perforation or abscess without bleeding; F17.210 Nicotine dependence, cigarettes, uncomplicated
CPT/HCPCS: 85025; 81001; 36415; 83690; 80053; 74177; 96374; 99284; Q9967